=== PATIENT | male | born 1955 | race Caucasian/White ===

== ENCOUNTER 2022-01-23 05:38 | Emergency (ER) | payer OTHER, MEDICARE ==
[~2022-01-23 05:38] MED LIST: FLOMAX0.4 MG PO; PERCOCET 7.5/321 TAB PO
[2022-01-23 06:30] LABS: BASOPHIL 0.4 % (0-2); EOSINOPHIL 1.1 % (0-7); HCT 40.7 % (42.0-52.0); HGB 14.1 g/dl (13.2-18.0); LYMPHOCYTE 9.3 % (15-48); MCH 31.1 pg (25.0-31.0); MCHC 34.6 g/dL (32.0-36.0); MCV 89.8 fL (78.0-100.0); MONOCYTE 8.8 % (0-12); MPV 10.7 fL (6.0-9.5); NEUTROPHIL 80.1 % (41-80); NRBC 0; PLT 202 K/uL (150-400); RBC 4.53 M/uL (4.70-6.00); RDW 12.3 % (11.5-14.0); WBC 10.2 K/uL (4.0-10.5)
[2022-01-23 07:04] LABS: BILIRUBIN NEGATIVE (NEGATIVE); BLOOD NEGATIVE Ery/uL (NEGATIVE); CLARITY CLEAR (CLEAR); COLOR YELLOW (YELLOW); GLUCOSE (U) NORMAL (NORMAL); LEUKOCYTES NEGATIVE Leu/uL (NEGATIVE); NITRITE NEGATIVE (NEGATIVE); PROTEIN NEGATIVE (NEGATIVE); SPECIFIC GRAVITY 1.015 (1.001-1.030); UROBILINOGEN 0.2 mg/dL (0.2-1.0)
[2022-01-23 07:26] LABS: ALBUMIN 3.5 g/dL (3.4-5.0); BILIRUBIN - TOTAL 0.5 mg/dL (0.2-1.0); BUN/CREAT RATIO (CALC) 14.6 RATIO; CREATININE 1.03 mg/dL (0.67-1.17); GLOBULIN (CALCULATION) 3.3 g/dL; POTASSIUM 4.5 mmol/L (3.5-5.1); TOTAL PROTEIN 6.8 g/dL (6.4-8.2)
[2022-01-23] MEDS ORDERED: NORCO 5-325 TA1 EACH PO (08:28)
[2022-01-23] MEDS ORDERED: ONDANSETRON ODT4 MG PO (08:28)
== END 2022-01-23 09:07 | disposition home or self-care (01) ==
LOC: FER 05:38
PROVIDERS: Internal Medicine
DX: K80.20 Calculus of gallbladder without cholecystitis without obstruction (principal); Z88.0 Allergy status to penicillin
CPT/HCPCS: 36415; 71250; 80053; 81003; 83690; 84145; 84484; 85025; 93005

== ENCOUNTER → 2022-05-10 | Day surgery (SDC) | payer OTHER ==
[~2022-05-10] VITALS: Ht 179.1 cm; Wt 96.2 kg
[~2022-05-10] MED LIST changes: +ACETAMINOPHEN500 M1 PO; +COLACE100 MG PO; +MOTRIN600 MG PO; +NORCO 5-325 TA1 EACH PO; +ONDANSETRON ODT4 MG PO; +OXY-IR 5MG5 MG PO
[2022-05-10 11:03] LABS: HCT 41.4 % (42.0-52.0); MCHC 33.8 g/dL (32.0-36.0); MCV 91.8 fL (78.0-100.0); MPV 10.7 fL (6.0-9.5); RBC 4.51 M/uL (4.70-6.00); WBC 5.7 K/uL (4.0-10.5)
[2022-05-10 11:21] LABS: ALBUMIN 3.8 g/dL (3.4-5.0); BILIRUBIN - TOTAL 0.7 mg/dL (0.2-1.0); BUN/CREAT RATIO (CALC) 13.2 RATIO; CREATININE 1.06 mg/dL (0.67-1.17); GLOBULIN (CALCULATION) 3.5 g/dL; POTASSIUM 4.1 mmol/L (3.5-5.1); TOTAL PROTEIN 7.3 g/dL (6.4-8.2)
== END | disposition home or self-care (01) ==
LOC: FAS 09:48
PROVIDERS: Student in an Organized Health Care Education/Training Program
DX: K80.10 Calculus of gallbladder with chronic cholecystitis without obstruction (principal); M62.08 Separation of muscle (nontraumatic), other site; Z88.0 Allergy status to penicillin
CPT/HCPCS: 36415; 80053; 82150; 83690; 86850; 86900; 86901; J1335; J1644; J2250; J2704; J3010; J7120; Q9967